=== PATIENT | male | born 1975 | race Caucasian/White ===

== ENCOUNTER 2016-10-25 20:42 | Emergency (ER) | payer OTHER ==
[2016-10-25] MEDS ORDERED: MORPHINE SULFATE 4 MG INJ IV ONE ×3 (20:59→23:12)
[2016-10-25] MEDS ORDERED: Sodium Chloride 0.9% 1000 ML 1,000 ML IV STA (20:59)
--- NOTE | 2016-10-25 21:04 | ERPHSYRPT ---
- History of Present Illness Time Seen by Provider: 10/25/16 21:01 Historian: patient Physician History: 41-year-old white male arrives with complaint of crampy, sharp epigastric pain vomiting symptoms 45 minutes sudden onset. Patient states he was not engaged in any activity when pain came on Patient has no chest pain no shortness of breath. Past medical history negative Past surgical history includes wrist surgery Timing/Duration: today (45 minutes ago) Activities at Onset: none Quality: cramping, sharpness Abdominal Pain Onset Location: epigastric Pain Radiation: no radiation Severity of Pain-Max: moderate Severity of Pain-Current: moderate Modifying Factors: Improves With: nothing Associated Symptoms: diaphoresis, nausea, vomiting, No back, No chest pain, No diarrhea, No fever/chills, No fatigue, No headache, No heartburn, No loss of appetite, No rash, No shortness of breath, No syncope Previous symptoms: no prior history Allergies/Adverse Reactions: Penicillins Allergy (Verified 10/25/16 21:02) Home Medications: No Reportable Medications [No Reported Medications] 10/25/16 [History] - Review of Systems Constitutional: No Fever, No Chills Eyes: No Symptoms Ears, Nose, & Throat: No Symptoms Respiratory: No Cough, No Dyspnea Cardiac: No Chest Pain, No Edema, No Syncope Abdominal/Gastrointestinal: Abdominal Pain, Nausea, Vomiting, No Diarrhea, No Constipation, No Hematemesis, No Hematochezia, No Melena, No Dysphagia, No Appetite Changes Genitourinary Symptoms: No Dysuria Musculoskeletal: No Back Pain, No Neck Pain Skin: No Rash Neurological: No Dizziness, No Focal Weakness, No Sensory Changes Psychological: No Symptoms Endocrine: No Symptoms All Other Systems: Reviewed and Negative - Past Medical History Pertinent Past Medical History: No - Past Surgical History Musculoskeletal: Other (wrist surgery) - Nursing Vital Signs Nursing Vital Signs: Initial Vital Signs Temperature 98.6 F Temperature Source Oral Pulse Rate 70 Respiratory Rate 20 Blood Pressure [] 138/93 Pain Intensity 7 - Physical Exam General Appearance: other (well-developed well-nourished white male moderate distres thes diaphoretic and vomiting) Eye Exam: PERRL/EOMI, eyes nml inspection Ears, Nose, Throat Exam: normal ENT inspection, pharynx normal, moist mucous membranes Neck Exam: normal inspection, non-tender, supple, full range of motion Respiratory Exam: normal breath sounds, lungs clear, No respiratory distress Cardiovascular Exam: regular rate/rhythm, normal heart sounds Gastrointestinal/Abdomen Exam: soft, normal bowel sounds, tenderness ( with epigastric tenderness), No ecchymosis, No pulsatile mass, No rebound, No hernia , No hepatomegaly, No organomegaly, No splenomegaly, No bruit Back Exam: normal inspection, normal range of motion, No CVA tenderness, No vertebral tenderness Extremity Exam: normal inspection, normal range of motion, pelvis stable Neurologic Exam: alert, oriented x 3, cooperative, normal mood/affect, nml cerebellar function, sensation nml, No motor deficits Skin Exam: normal color, warm, dry, diaphoresis, other (diaphoretic) SpO2 Interpretation: normal (99%), borderline oxygenation - Course Nursing assessment & vital signs reviewed: Yes EKG Interpreted by Me: RATE (65 bpm), Sinus Rhythm, Other (EKG, sinus rhythm, 65 bpm, axis SI/QIII pattern Q waves noted in lead [address] or T wave changes noted) - CT Exams Abdomen/Pelvis CT Interpretation: Tele-radiologist Report (CT of the abdomen and pelvis impression 1. Poor definition of the duodenal wall with adjacent poorly organized fluid collection. Findings are suggestive of duodenitis 2. Mild fat stranding near the pancreatic head. Pancreatitis cannot be excluded. 3. Increased attenuation near the gallbladder neck may represent gallbladder folds or calculus. If clinically indicated ultrasound may be of further benefit ) Ordered Tests: Active Orders 24 hr Category Date Time Status EKG-ER Only STAT Care 10/25/16 21:01 Active IV Insertion STAT Care 10/25/16 20:59 Active IV Insertion STAT Care 10/25/16 21:16 Inactive ABDOMEN AND PELVIS W CONTRAST [CT] Stat Exams 10/25/16 22:12 Taken AMYLASE Stat Lab 10/25/16 21:00 Completed CBC W DIFF Stat Lab 10/25/16 21:00 Completed CMP Stat Lab 10/25/16 21:00 Completed LIPASE Stat Lab 10/25/16 21:00 Completed TROPONIN Stat Lab 10/25/16 21:00 Completed Medication Summary Generic Name Dose Route Start Last Admin Trade Name Freq PRN Reason Stop Dose Admin Sodium Chloride 1,000 mls @ 999 mls/hr 10/26/16 00:07 10/26/16 00:10 Sodium Chloride 0.9% 1000 Ml IV 10/26/16 01:07 999 mls/hr .Q1H1M STA Administration Discontinued Medications Generic Name Dose Route Start Last Admin Trade Name Tamia PRN Reason Stop Dose Admin Sodium Chloride 1,000 mls @ 999 mls/hr 10/25/16 20:59 10/25/16 21:14 Sodium Chloride 0.9% 1000 Ml IV 10/25/16 21:59 999 mls/hr .Q1H1M STA Administration Sodium Chloride Confirm 10/25/16 21:08 Sodium Chloride 0.9% 1000 Ml Administered 10/25/16 21:09 Dose 1,000 mls @ ud .ROUTE .STK-MED ONE Sodium Chloride Confirm 10/25/16 22:59 Sodium Chloride 0.9% 1000 Ml Administered 10/25/16 23:00 Dose 1,000 mls @ ud .ROUTE .STK-MED ONE Sodium Chloride Confirm 10/26/16 00:09 Sodium Chloride 0.9% 1000 Ml Administered 10/26/16 00:10 Dose 1,000 mls @ ud .ROUTE .STK-MED ONE Morphine Sulfate 4 mg 10/25/16 20:59 10/25/16 21:09 Morphine Sulfate 4 Mg Inj IV 10/25/16 21:00 4 mg STAT ONE Administration Morphine Sulfate Confirm 10/25/16 21:08 Morphine Sulfate 4 Mg Inj Administered 10/25/16 21:09 Dose 4 mg .ROUTE .STK-MED ONE Morphine Sulfate 4 mg 10/25/16 21:56 10/25/16 22:03 Morphine Sulfate 4 Mg Inj IV 10/25/16 21:57 4 mg STAT ONE Administration Morphine Sulfate Confirm 10/25/16 22:00 Morphine Sulfate 4 Mg Inj Administered 10/25/16 22:01 Dose 4 mg .ROUTE .STK-MED ONE Morphine Sulfate 4 mg 10/25/16 23:12 10/25/16 23:15 Morphine Sulfate 4 Mg Inj IV 10/25/16 23:13 4 mg STAT ONE Administration Morphine Sulfate Confirm 10/25/16 23:15 Morphine Sulfate 4 Mg Inj Administered 10/25/16 23:16 Dose 4 mg .ROUTE .STK-MED ONE Ondansetron HCl 4 mg 10/25/16 21:05 10/25/16 21:08 Zofran 4 Mg/2 Ml Vial IV 10/25/16 21:06 4 mg STAT ONE Administration Ondansetron HCl Confirm 10/25/16 21:07 Zofran 4 Mg/2 Ml Vial Administered 10/25/16 21:08 Dose 4 mg .ROUTE .STK-MED ONE Promethazine HCl 12.5 mg 10/25/16 21:56 10/25/16 22:03 Phenergan 25 Mg Inj IV 10/25/16 21:57 12.5 mg STAT ONE Administration Promethazine HCl Confirm 10/25/16 22:00 Phenergan 25 Mg Inj Administered 10/25/16 22:01 Dose 25 mg .ROUTE .STK-MED ONE Lab/Rad Data: Laboratory Result Diagrams 10/25/16 21:00 10/25/16 21:00 Laboratory Results 10/25/16 10/25/16 Range/Units 21:00 21:00 WBC 11.3 H (4.0-10.5) K/mm3 RBC 5.55 (4.1-5.6) M/mm3 Hgb 16.1 (12.5-18.0) gm/dl Hct 47.9 (42-50) % MCV 86.3 (78-100) fl MCH 29.0 (26-32) pg MCHC 33.6 (32-36) g/dl RDW 13.0 (11.5-14.0) % Plt Count 357 (150-450) K/mm3 MPV 11.6 H (6-9.5) fl Gran % 61.7 (36.0-66.0) % Lymphocytes % 23.0 L (24.0-44.0) % Monocytes % 11.9 (0.0-12.0) % Eosinophils % 3.0 (0.00-5.0) % Basophils % 0.4 (0.0-0.4) % Basophils # 0.05 (0-0.4) Sodium 140 (136-145) mEq/L Potassium 4.2 (3.5-5.1) mEq/L Chloride 103 (98-107) mEq/L Carbon Dioxide 24.9 (21-32) mEq/L Anion Gap 16.3 H (5-15) MEQ/L BUN 19 (9-20) mg/dL Creatinine 1.36 H (0.55-1.30) mg/dl Estimated GFR > 60 ML/MIN Glucose 108 (70-110) MG/DL Calcium 9.3 (8.5-10.1) mg/dL Total Bilirubin 5.2 H (0.2-1.0) mg/dL AST 186 H (15-37) U/L ALT 217 H (12-78) U/L Alkaline Phosphatase 164 H (46-116) U/L Troponin I < 0.017 (0.000-0.056) ng/ml Serum Total Protein 8.5 H (6.4-8.2) gm/dL Albumin 4.3 (3.4-5.0) g/dL Amylase 1272 H (25-115) U/L Lipase 71869 H (73-393) U/L - Progress Progress: improved Progress Note: 10/25/16 23:37 41-year-old white male arrives with diaphoresis and of severe epigastric abdominal pain Patient's EKG no acute ST or T wave changes changes [address] of the abdomen is remarkable for increased attenuation near the gallbladder neck which may represent gallbladder fold her calculus, mild fat stranding near the pancreatic head pancreatitis cannot be excluded, poor definition of the duodenal wall with adjacent poorly organized fluid collection findings suggestive of duodenitis Patient with a white count of 11 3 hemoglobin 16 hematocrit 47.9 patient with markedly elevated lipase of over 30,000 amylase is 1272 troponin within normal limits BUN and creatinine 19 and 1.36 sodium and potassium 140 and 4.2 Patient given IV morphine IV fluids IV Zofran IV Phenergan Case is discussed with Bertha Solano instrumentation fitter for hospitalist at [facility]. 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 - Departure Time of Disposition: 23:39 Departure Disposition: Transfer ([facility]) Clinical Impression: Epigastric pain Vomiting Qualifiers: Vomiting type: unspecified Vomiting Intractability: non-intractable Nausea presence: with nausea Qualified Code(s): R11.2 - Nausea with vomiting, unspecified Pancreatitis Qualifiers: Chronicity: acute Pancreatitis type: unspecified pancreatitis type Acute pancreatitis complication: unspecified Qualified Code(s): K85.90 - Acute pancreatitis without necrosis or infection, unspecified Condition: Fair Critical Care Time: No Referrals: DOCTOR,NO FAMILY [Primary Care Provider] -
[2016-10-25] MEDS ORDERED: Zofran 4 MG/2 ML VIAL IV ONE (21:05)
[2016-10-25] MEDS ORDERED: Zofran 4 MG/2 ML VIAL ONE (21:07)
[2016-10-25] MEDS ORDERED: MORPHINE SULFATE 4 MG INJ ONE ×3 (21:08→23:15)
[2016-10-25] MEDS ORDERED: Sodium Chloride 0.9% 1000 ML 1,000 ML ONE ×2 (21:08→22:59)
[2016-10-25 21:14] LABS: BASOPHIL % 0.4 % (0.0-0.4); Granulocytes % 61.7 % (36.0-66.0); Mean Cell Volume 86.3 fl (78-100); Mean Platelet Volume 11.6 fl (6-9.5); Monocytes % 11.9 % (0.0-12.0); Platelet Count 357 K/mm3 (150-450); Red Blood Count 5.55 M/mm3 (4.1-5.6); White Blood Count 11.3 K/mm3 (4.0-10.5)
[2016-10-25 21:15] VITALS: O2SAT 99
[2016-10-25 21:37] LABS: ALBUMIN 4.3 g/dL (3.4-5.0); ALKALINE PHOSPHATASE 164 U/L (46-116); ANION GAP 16.3 MEQ/L (5-15); BILIRUBIN,TOTAL 5.2 mg/dL (0.2-1.0); BLOOD UREA NITROGEN 19 mg/dL (9-20); CHLORIDE 103 mEq/L (98-107); Carbon Dioxide 24.9 mEq/L (21-32); Glucose 108 MG/DL (70-110); Potassium 4.2 mEq/L (3.5-5.1); SGOT/AST 186 U/L (15-37); SGPT/ALT 217 U/L (12-78); SODIUM 140 mEq/L (136-145); Total Protein 8.5 gm/dL (6.4-8.2)
[2016-10-25] MEDS ORDERED: Phenergan 25 MG INJ IV ONE (21:56)
[2016-10-25 22:00] LABS: TROPONIN < 0.017 ng/ml (0.000-0.056)
[2016-10-25] MEDS ORDERED: Phenergan 25 MG INJ ONE (22:00)
[2016-10-25 22:13] LABS: LIPASE 37274 U/L (73-393)
[2016-10-26 00:07] VITALS: BP 138/93; PULSE 70
[2016-10-26] MEDS ORDERED: Sodium Chloride 0.9% 1000 ML 1,000 ML IV STA (00:07)
[2016-10-26] MEDS ORDERED: Sodium Chloride 0.9% 1000 ML 1,000 ML ONE (00:09)
[2016-10-26] MEDS ORDERED: MORPHINE SULFATE 4 MG INJ IV ONE (00:22)
[2016-10-26] MEDS ORDERED: MORPHINE SULFATE 4 MG INJ ONE (00:23)
[2016-10-26] MEDS ORDERED: Sodium Chloride 0.9% 1000 ML 1,000 ML IV SCH (01:15)
--- NOTE | 2016-10-26 09:21 | XRAY ---
Indication: Abdominal pain. Increased amylase. Multiple contiguous axial images obtained through the abdomen and pelvis using 80 cc Isovue 370 contrast only. Comparison: None Lung bases demonstrates bibasilar fibrosis/scarring on background of groundglass air space disease. No consolidation or large effusion. Heart is not enlarged. Pancreatic body and head appears prominent/edematous with peripancreatic stranding favoring pancreatitis. Tiny adjacent free fluid and duodenal wall thickening presumed reactive. No walled off fluid collection or free air. Noncontrasted stomach and bowel loops appear nonobstructed. Neck of the gallbladder demonstrates curvilinear density either gallbladder fold versus gallstone. No abnormal biliary dilatation. Remaining liver, spleen, adrenal glands, kidneys, ureters, bladder, and aorta appear unremarkable. No pathologic retroperitoneal lymphadenopathy. Osseous structures intact. Impression: 1. CT findings as detailed favoring pancreatitis. Probable reactive duodenitis and tiny free fluid. 2. Gallbladder neck curvilinear density either gallbladder fold versus stone. Gallbladder sonogram may yield further information. 3. Bilateral lower lobe groundglass airspace disease. Comment: Preliminary interpretation was made by [facility]. No critical discrepancy. CT DI 23.68
== END 2016-10-26 00:48 | disposition short-term general hospital (02) ==
LOC: ED 20:42
DX: R11.2 Nausea with vomiting, unspecified (principal); K85.90 Acute pancreatitis without necrosis or infection, unspecified; R10.13 Epigastric pain
CPT/HCPCS: 36000; 36415; 74177; 80053; 82150; 83690; 84484; 85025; 93005; 96360; 96361; 96374; 96375; 96376; 99285; J2270; J2405; J2550